=== PATIENT | female | born 1975 | race Hispanic/Latino ===

== ENCOUNTER 2018-08-25 23:09 | Emergency (ER) | payer OTHER ==
[2018-08-25 23:33] LABS: APPEARANCE,URINE Clear (CLEAR); BILIRUBIN,URINE Negative (NEGATIVE); COLOR,URINE Yellow (YELLOW); GLUCOSE, URINE (UA) Negative (NEGATIVE); KETONES,URINE Negative (NEGATIVE); LEUKOCYTE ESTERASE ,URINE Negative (NEGATIVE); NITRATE,URINE Negative (NEGATIVE); OCCULT BLOOD,URINE Large (NEGATIVE); PROTEIN,URINE Trace mg/dL (NEGATIVE)
[2018-08-25 23:44] LABS: BACTERIA,URINE None Seen /HPF (None Seen); MUCUS,URINE Few LPF (None Seen); SQUAMOUS EPITHELIAL CELL,UR Few /HPF (0-2); WBC,URINE None Seen /HPF (0-1)
[2018-08-26 00:26] LABS: BASOPHILS % (AUTO) 1.3 % (0.0-5.0); HEMATOCRIT 28.4 % (36-48); LYMPHOCYTES % (AUTO) 28.6 % (21.0-51.0); MEAN CORPUSCULAR HEMOGLOBIN 22.4 pg (27.0-33.0); MEAN CORPUSCULAR HGB CONC 31.1 g/dL (32.0-36.0); MONOCYTES % (AUTO) 8.4 % (3.0-13.0); NEUTROPHILS % (AUTO) 59.7 % (40.0-77.0); NUCLEATED RED BLOOD CELLS 0.1 % (0.0-0.19); PLATELET COUNT (AUTO) 258 K/uL (130-400); RED BLOOD CELL COUNT(AUTO) 3.94 MIL/uL (4.00-5.50); RED CELL DISTRIBUTION WIDTH 16.9 % (11.0-15.5); WHITE BLOOD COUNT (AUTO) 7.5 K/uL (4.8-10.8)
[2018-08-26] MEDS ORDERED: HYDROXYZINE HCL 25 MG TABLET ONE (00:44)
== END 2018-08-26 01:25 | disposition home or self-care (01) ==
LOC: EDH 23:09
DX: F41.0 Panic disorder [episodic paroxysmal anxiety] (principal); F15.90 Other stimulant use, unspecified, uncomplicated; Z72.0 Tobacco use
CPT/HCPCS: 36415; 80053; 81001; 81025; 84484; 85025; 93005